=== PATIENT | female | born 1975 | race Hispanic/Latino ===

== ENCOUNTER 2017-06-04 09:46 | Emergency (ER) | payer MEDICAID, OTHER ==
--- NOTE | 2017-06-04 10:08 | C.PDOC ---
History Of Present Illness 41 year old female presents to the ED with complaints of pain to the back of the neck since yesterday morning. Patient notes this morning, redness to area of pain. She denies fever, nausea, vomiting, shortness of breath, chest pain, numbness, weakness, or tingling. Time Seen by Provider: 06/04/17 09:56 Chief Complaint (Nursing): Back Pain History Per: Patient History/Exam Limitations: no limitations Onset/Duration Of Symptoms: Days (1 day) Current Symptoms Are (Timing): Still Present Quality Of Discomfort: "Pain" Previous Symptoms: None Associated Symptoms: None Recent travel outside of the [place]: No Past Medical History Reviewed: Historical Data, Nursing Documentation, Vital Signs Vital Signs: Last Vital Signs Temp 98.1 F 06/04/17 10:01 Pulse 69 06/04/17 10:01 Resp 20 06/04/17 10:01 BP 125/68 06/04/17 10:01 Pulse Ox 100 06/04/17 11:04 Surgical History: Tonsillectomy, Family History: States: Other Other Family History: Non-contributory - Social History Hx Alcohol Use: Yes Hx Substance Use: No Review Of Systems Constitutional: Negative for: Fever, Chills Cardiovascular: Negative for: Chest Pain, Palpitations Respiratory: Negative for: Cough, Shortness of Breath Gastrointestinal: Negative for: Nausea, Vomiting Neurological: Negative for: Weakness, Numbness Physical Exam - Physical Exam Appears: Well, Non-toxic, No Acute Distress Skin: Warm, Dry, Other (1 cm mild erythematous lesion over posterior neck. No flucturance. ) Head: Atraumatic, Normacephalic Eye(s): bilateral: Normal Inspection, PERRL, EOMI Oral Mucosa: Moist Neck: Normal ROM, Supple Chest: Symmetrical, No Deformity Cardiovascular: Rhythm Regular, No Murmur Respiratory: Normal Breath Sounds, No Rales, No Rhonchi, No Wheezing Extremity: Normal ROM, No Tenderness Neurological/Psych: Oriented x3, Normal Speech, Normal Cognition, Normal Cranial Nerves, Normal Motor, Normal Sensation ED Course And Treatment O2 Sat by Pulse Oximetry: 100 (room air ) Medical Decision Making Medical Decision Making: ?insect bite vs early cellulitis. no evidence of abscess at this time. will cover w abx and pt instructed on good return precautions. Disposition - Disposition Referrals: [facility] at [facility] [Outside] Disposition: HOME/ ROUTINE Disposition Time: 10:30 Condition: GOOD Additional Instructions: Please follow up with a primary doctor in the next 2 weeks. Return to the ER for any worsening symptoms or if you are not improving in 48 hours. Prescriptions: Cephalexin [Keflex] 500 mg PO QID #28 capsule Sulfamethoxazole/Trimethoprim [Bactrim Ds Tablet] 1 each PO BID #14 tablet Instructions: Cellulitis (ED) Forms: [facility] (Omani), Work Excuse - Clinical Impression Clinical Impression: Skin lesion - Scribe Statement The provider has reviewed the documentation as recorded by the Scribe Andie Byers All medical record entries made by the Fern were at my direction and personally dictated by me. I have reviewed the chart and agree that the record accurately reflects my personal performance of the history, physical exam, medical decision making, and the department course for this patient. I have also personally directed, reviewed, and agree with the discharge instructions and disposition.
[2017-06-04 10:10] VITALS: BP 125/68; PULSE 69; RESP 20; TEMP 98.1; O2SAT 100
== END 2017-06-04 10:39 | disposition home or self-care (01) ==
LOC: C.ER 09:46
DX: L98.8 Other specified disorders of the skin and subcutaneous tissue (principal)

== ENCOUNTER 2017-06-21 20:21 | Emergency (ER) | payer MEDICAID ==
[2017-06-21 21:00] VITALS: BP 156/74; PULSE 64; RESP 18; TEMP 97.7; O2SAT 100
--- NOTE | 2017-06-21 21:49 | C.PDOC ---
History Of Present Illness 41 yr old female presents to the ER with complaints of cough and nasal congestion for the past 1 week. Patient denies improvement of cough despite use of OTC medication. Denies fever, chest pain, SOB, nausea, vomiting, abdominal pain, headache, weakness or numbness. Time Seen by Provider: 06/21/17 21:19 Chief Complaint (Nursing): Cough, Cold, Congestion History Per: Patient History/Exam Limitations: no limitations Onset/Duration Of Symptoms: Days (1 week) Current Symptoms Are (Timing): Still Present Sick Contacts (Context): None Past Medical History Reviewed: Historical Data, Nursing Documentation, Vital Signs Vital Signs: Last Vital Signs Temp 97.7 F 06/21/17 20:58 Pulse 64 06/21/17 20:58 Resp 18 06/21/17 20:58 BP 156/74 H 06/21/17 20:58 Pulse Ox 100 06/21/17 22:28 Surgical History: Tonsillectomy, Family History: States: No Known Family Hx - Social History Hx Alcohol Use: Yes Hx Substance Use: No - Immunization History Hx Tetanus Toxoid Vaccination: No Hx Influenza Vaccination: No Hx Pneumococcal Vaccination: No Review Of Systems Constitutional: Negative for: Fever ENT: Negative for: Nose Congestion Cardiovascular: Negative for: Chest Pain Respiratory: Positive for: Cough. Negative for: Shortness of Breath Neurological: Negative for: Headache Physical Exam - Physical Exam Appears: Non-toxic, No Acute Distress Skin: Warm, Dry, No Rash Head: Atraumatic, Normacephalic Oral Mucosa: Moist Chest: Symmetrical, No Tenderness Cardiovascular: Rhythm Regular, No Murmur Respiratory: Normal Breath Sounds, No Rales, No Rhonchi, No Stridor, No Wheezing Gastrointestinal/Abdominal: Normal Exam, Soft, No Tenderness, No Guarding, No Rebound Extremity: Normal ROM, No Swelling Neurological/Psych: Oriented x3, Normal Speech, Normal Motor ED Course And Treatment O2 Sat by Pulse Oximetry: 100 (RA) Pulse Ox Interpretation: Normal Disposition Counseled Patient/Family Regarding: Diagnosis, Need For Followup, Rx Given - Disposition Referrals: [facility] [Outside] Disposition: HOME/ ROUTINE Disposition Time: 21:43 Condition: STABLE Additional Instructions: Please follow up with PMD Increase PO fluids Take meds as directed Return to ER if worse Prescriptions: Azithromycin [Zithromax] 250 mg PO DAILY #6 tab Benzonatate [Tessalon Perles] 100 mg PO TID #20 sgl Mometasone Furoate [Nasonex] 2 spray NS DAILY #1 bottle Instructions: Sinusitis (ED), Acute Bronchitis (ED) Forms: [facility] (Hebrew) - Clinical Impression Clinical Impression: Bronchitis, Sinusitis - PA / GERONTOLOGICAL NURSE PRACTITIONER / Resident Statement MD/DO has reviewed & agrees with the documentation as recorded. - Scribe Statement The provider has reviewed the documentation as recorded by the Scribe Danielle Edwards All medical record entries made by the Scribcurt were at my direction and personally dictated by me. I have reviewed the chart and agree that the record accurately reflects my personal performance of the history, physical exam, medical decision making, and the department course for this patient. I have also personally directed, reviewed, and agree with the discharge instructions and disposition.
== END 2017-06-21 22:34 | disposition home or self-care (01) ==
LOC: C.ER 20:21
DX: J40 Bronchitis, not specified as acute or chronic (principal); J32.9 Chronic sinusitis, unspecified